=== PATIENT | female | born 1990 | race African-American/Black ===

== ENCOUNTER 2017-05-28 13:54 | Inpatient (IN) | payer BC, OTHER ==
[2017-05-28 16:44] LABS: URINE APPEARANCE CLOUDY; URINE BILIRUBIN NEGATIVE (NEGATIVE); URINE BLOOD NEGATIVE (NEGATIVE); URINE COLOR YELLOW; URINE GLUCOSE (UA) NEGATIVE (NEGATIVE); URINE KETONE NEGATIVE (NEGATIVE); URINE LEUK ESTERASE TRACE (NEGATIVE); URINE NITRITE NEGATIVE (NEGATIVE); URINE PROTEIN NEGATIVE (NEGATIVE); URINE UROBILINOGEN NEGATIVE mg/dL (0.2-1.0)
[2017-05-28 16:50] LABS: URINE HYALINE CAST 1 /lpf; URINE MUCUS FEW; URINE RBC 1 /hpf (0-3); URINE WBC 4 /hpf (3-5)
[2017-05-28] MEDS ORDERED: ACETAMINOPHEN 325 MG TABLET (FP) ONE (16:56)
[2017-05-28] MEDS ORDERED: ACETAMINOPHEN 325 MG TABLET (FP) PO ONE (17:00)
[2017-05-28] MEDS ORDERED: DEXTROSE 5%-LACTATED RINGERS 1,000 ML IV SCH (17:00)
[2017-05-28 20:06] LABS: URINE LEUK ESTERASE Negative (NEGATIVE)
[2017-05-29 02:07] VITALS: TEMP 98.7
--- NOTE | 2017-05-29 05:33 | HP ---
Past Medical History - Past Medical History ...: 2 ...Para: 0 ...Term: 0 ...: 0 ...Spon : 0 ...Induced : 1 ...Multiple Gestation: 0 ...EDC by Sono: 09/28/17 - Smoking History Smoking history: Never smoked Have you smoked in the past 12 months: No - Alcohol/Substance Use Hx Alcohol Use: No Home Medications - Allergies Allergies/Adverse Reactions: Allergies Allergy/AdvReac Type Severity Reaction Status Date / Time No Known Allergies Allergy Verified 05/28/17 14:09 - Home Medications Home Medications: Ambulatory Orders Vit/Iron Fumarate/FA [ Tablet] 1 tab PO DAILY 05/28/17 Physical Exam - Maternity Vital Signs: Vital Signs Temperature 98.7 F 05/29/17 02:00 Pulse Rate 86 05/29/17 02:00 Respiratory Rate 18 05/29/17 02:00 Blood Pressure 107/52 05/29/17 02:00 O2 Sat by Pulse Oximetry (%) 98 05/28/17 14:05
--- NOTE | 2017-05-29 05:36 | HP ---
Past Medical History - Admission Chief Complaint: cramping, leaking fluid History of Present Illness: 27 y/o with SIUP at 22.4 weeks gestation (based upon 1st trimester ultrasound and LMP giving EDC 09/28/17) who presented to L&D yesterday with complaints of cramping. Upon ultrasound examination yesterday, the fetus was found to be footling breech position with a cervical length of 0.9cm. The patient was kept for observation overnight awaiting MFM consultation in a.m. and at approx 4am the pt was concerned that she was leaking urine and was noted to have SROM. Sterile speculum exam showed +Pooling and + nitrizine. Cervix appeared closed. Bedside ultrasound repeated this a.m. revealed confirmation of double footling breech presentation. 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 No: HIV, MRSA Psych: No: Anxiety, Bipolar, Depression ENT: No: Allergic Rhinitis Endocrine: No: Diabetes Mellitus, Hyperthyroidism - Past Surgical History Past Surgical History: Yes: None Hx Myomectomy: No Hx Transabdominal Cerclage: No - Smoking History Smoking history: Never smoked Have you smoked in the past 12 months: No - Alcohol/Substance Use Hx Alcohol Use: No - Social History ADL: Independent History of Recent Travel: No Home Medications - Allergies Allergies/Adverse Reactions: Allergies Allergy/AdvReac Type Severity Reaction Status Date / Time No Known Allergies Allergy Verified 05/28/17 14:09 - Home Medications Home Medications: Ambulatory Orders Vit/Iron Fumarate/FA [ Tablet] 1 tab PO DAILY 05/28/17 Review of Systems - Review of Systems Constitutional: reports: No Symptoms Eyes: reports: No Symptoms HENT: reports: No Symptoms Neck: reports: No Symptoms Cardiovascular: reports: No Symptoms Respiratory: reports: No Symptoms Gastrointestinal: reports: Other (cramping) Genitourinary: reports: Discharge (watery vaginal discharge c/o ROM). denies: Vaginal Bleeding Breasts: reports: No Symptoms Reported Musculoskeletal: reports: No Symptoms Integumentary: reports: No Symptoms Neurological: reports: No Symptoms Endocrine: reports: No Symptoms Hematology/Lymphatic: reports: No Symptoms Psychiatric: reports: No Symptoms Physical Exam - Maternity Vital Signs: Vital Signs Temperature 98.7 F 05/29/17 02:00 Pulse Rate 86 05/29/17 02:00 Respiratory Rate 18 05/29/17 02:00 Blood Pressure 107/52 05/29/17 02:00 O2 Sat by Pulse Oximetry (%) 98 05/28/17 14:05 Constitutional: Yes: Well Nourished, No Distress Eyes: Yes: Conjunctiva Clear, EOM Intact HENT: Yes: Atraumatic, Normocephalic Neck: Yes: Supple, Trachea Midline Cardiovascular: Yes: Regular Rate and Rhythm Lungs: Clear to auscultation - Abdominal Exam/OB Number of Fetuses: Single Presentation: Breech Contractions: No Monitor Mode: External Decelerations: None - Vaginal Exam/OB Vaginal Bleediing: No Speculum Exam: Yes (grossly ruptured but also +pooling on speculum exam) Dilatation (cm): 0 Effacement (%): 90 Amniotic Membrane Status: Ruptured Amniotic Fluid: Yes: Clear Presentation: Double Footling Breech Station: -4 - Physical Exam Edema: No Psychiatric: Yes: Alert, Oriented Hemorrhage Risk Assessment - Risk Factors Medium Risk Factors: Yes: None High Risk Factors: Yes: None Risk Score: 1 Risk Level: Medium Risk Imaging - Results Ultrasound: Report Reviewed, Image Reviewed Problem List - Problems (1) Premature rupture of membranes (PROM) affecting second Code(s): O42.90 - BESSIE ROM, 7TH0 BETW RUPT & ONST LABR, UNSP WEEKS OF GEST Assessment/Plan 27 y/o with SIUP at 22.4 weeks gestation with previable PPROM - AFVSS - previable PPROM, cervix appears closed on sterile speculum exam, no current pain, no signs of labor. Discussed options with patient including induction/ termination vs. expectant management. Pt aware that until 23 weeks baby is previable and that resuscitation is usually not performed until that gestational age. 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 After weighing options pt desires expectant management in hopes to achieve at least 23 weeks gestation. Discussed with patient that transfer of care to tertiary care facility may be beneficial to provide higher level NICU care in case of delivery at 23 weeks, patient agrees to transfer and desires transfer to tertiary care facility. Discussed case with [facility] as well as [facility]. [facility] agrees to accept patient. Pt aware that until 23 week the facility will likely not do any interventions and would likely offer termination as well. However, if pt desires expectant management and she appears stable she may even be discharged home with instructions to return at 23 weeks. Pt aware of these scenarios. - Transfer of care initiated
[2017-05-29 06:39] VITALS: BMI 30.9
[2017-05-29 06:56] LABS: BASO % 0.1 % (0-2.0); EOS % 0.7 % (0-4.5); MCH 30.5 pg (25.7-33.7); MCHC 33.5 g/dl (32.0-36.0); MEAN PLT VOLUME 8.4 fl (7.5-11.1); NEUT % 79.9 % (42.8-82.8); PLATELET COUNT 278 K/MM3 (134-434); RDW 14.1 % (11.6-15.6); WHITE BLOOD COUNT 17.3 K/mm3 (4.0-10.0)
[2017-05-29 07:08] VITALS: BP 121/63; PULSE 95
[2017-05-29 07:18] LABS: ANION GAP 7 (8-16); CALCIUM 8.2 mg/dL (8.5-10.1); CO2 23 mmol/L (21-32); CREATININE 0.7 mg/dL (0.55-1.02); GLUCOSE,RANDOM 73 mg/dL (74-106)
[2017-05-29 07:21] LABS: INR 0.98 (0.82-1.09); PROTHROMBIN TIME (PATIENT) 11.1 SEC (9.98-11.88)
--- NOTE | 2017-05-29 07:52 | DS ---
Physical Exam-MUSEUM ATTENDANT Vital Signs: Vital Signs Temperature 98.7 F 05/29/17 07:00 Pulse Rate 95 H 05/29/17 07:00 Respiratory Rate 20 05/29/17 07:00 Blood Pressure 121/63 05/29/17 07:00 O2 Sat by Pulse Oximetry (%) 98 05/28/17 14:05 Labs: CBC, BMP 05/29/17 06:30 05/29/17 06:30 Discharge Summary Reason For Visit: LABOR ADMIT Current Active Problems Premature rupture of membranes (PROM) affecting second (Acute) Hospital Course: Pt admitted on 05/28 with pressure and cramping, shortened cervix noted. Pt kept overnight for observation and early a.m. 05/28 (approx 4am) had spontaneous ROM. After evaluation and discussion with patient plan is to transfer care to [facility]. Transfer initiated 05/29/17 and accepted. Pt transfered in stable condition to [facility] on a.m. of 05/29/17. Condition: Stable - Instructions Referrals: Imelda Cisneros MD [Staff Physician] - (2 weeks after delivery) Disposition: TRANSFER ACUTE CARE/OTHER HOSP - Home Medications Comprehensive Discharge Medication List: Ambulatory Orders Vit/Iron Fumarate/FA [ Tablet] 1 tab PO DAILY 05/28/17
[2017-05-29] MEDS ORDERED: DEXTROSE 5%-LACTATED RINGERS 1,000 ML IV SCH (08:40)
== END 2017-05-29 09:08 | disposition short-term general hospital (02) | DRG 782 ==
LOC: JER 13:54 → JLDR 05-29 04:28
PROVIDERS: ADMIT Obstetrics & Gynecology; ATTEND Obstetrics & Gynecology
DX: O42.912 Preterm premature rupture of membranes, unspecified as to length of time between rupture and onset of labor, second trimester (principal); O32.8XX0 Maternal care for other malpresentation of fetus, not applicable or unspecified; Z3A.22 22 weeks gestation of pregnancy
CPT/HCPCS: 36415; 76801-TC; 76817-TC; 80048; 81003; 81015; 85025; 85610; 85730; 86593; 86850; 86900; 86901; 99283-25